=== PATIENT | female | born 1975 ===

== ENCOUNTER 2016-07-21 09:24 | Emergency (ER) | payer BC ==
[2016-07-21 09:45] VITALS: BP 123/83
--- NOTE | 2016-07-21 10:20 | UC ---
Throat Pain/Nasal Zia HPI - HPI Summary HPI Summary: Sore, red throat starting 2 days ago. Denies cough or trouble breathing, no fever or vomiting. Works at [employer] school. - History of Current Complaint Hx Obtained From: Patient Hx Last Menstrual Period: 10/11/14 ?: No Onset/Duration: Gradual Onset, Lasting Days Severity: Moderate Cough: None Associated Signs & Symptoms: Negative: Sinus Discomfort, Nasal Discharge <Radha Toledo - Last Filed: 07/21/16 10:20> <Joanie Valadez - Last Filed: 07/21/16 11:20> - History of Current Complaint Chief Complaint: UCGeneralIllness Stated Complaint: SORE THROAT Time Seen by Provider: 07/21/16 10:07 - Allergies/Home Medications Allergies/Adverse Reactions: Allergies Allergy/AdvReac Type Severity Reaction Status Date / Time No Known Allergies Allergy Verified 11/12/15 15:47 PMH/Surg Hx/FS Hx/Imm Hx Previously Healthy: Yes - Surgical History Surgical History: None Surgery Procedure, Year, and Place: 2015 - Family History Known Family History: Negative: Blood Disorder - Social History Occupation: Employed Full-time Lives: With Family Alcohol Use: None Substance Use Type: None Smoking Status (MU): Never Smoked Tobacco Have You Smoked in the Last Year: No - Immunization History Most Recent Influenza Vaccination: unsure Most Recent Tetanus Shot: declines Most Recent Pneumonia Vaccination: never <Radha Toledo - Last Filed: 07/21/16 10:20> Review of Systems Constitutional: Negative Skin: Negative Eyes: Negative ENT: Sore Throat Respiratory: Negative Cardiovascular: Negative Gastrointestinal: Negative Genitourinary: Negative Motor: Negative Neurovascular: Negative Musculoskeletal: Negative Neurological: Negative Psychological: Negative All Other Systems Reviewed And Are Negative: Yes <Radha Toledo - Last Filed: 07/21/16 10:20> Physical Exam Triage Information Reviewed: Yes Appearance: Well-Appearing, No Pain Distress, Well-Nourished Vital Signs: Initial Vital Signs Temp 99.1 F 07/21/16 09:41 Pulse 87 07/21/16 09:41 Resp 16 07/21/16 09:41 BP 123/83 07/21/16 09:41 Pulse Ox 100 07/21/16 09:41 Vital Signs Reviewed: Yes Eye Exam: Normal Eyes: Positive: Conjunctiva Clear ENT: Positive: Hearing grossly normal, Pharyngeal erythema, TMs normal, Tonsillar swelling, Tonsillar exudate. Negative: Nasal congestion, Nasal drainage Dental Exam: Normal Neck: Positive: Supple, Nontender, Enlarged Nodes @ - tonsillar Respiratory Exam: Normal Respiratory: Positive: Chest non-tender, Lungs clear, Normal breath sounds, No respiratory distress, No accessory muscle use Cardiovascular Exam: Normal Cardiovascular: Positive: RRR, No Murmur Musculoskeletal Exam: Normal Neurological Exam: Normal Neurological: Positive: Alert Psychological Exam: Normal Skin Exam: Normal <Radha Toledo - Last Filed: 07/21/16 10:20> Vital Signs: Initial Vital Signs Temp 99.1 F 07/21/16 09:41 Pulse 87 07/21/16 09:41 Resp 16 07/21/16 09:41 BP 123/83 07/21/16 09:41 Pulse Ox 100 07/21/16 09:41 <Joanie Valadez - Last Filed: 07/21/16 11:20> Throat Pain/Nasal Course/Dx - Differential Dx/Diagnosis Provider Diagnoses: strep tonsillitis <Radha Toledo - Last Filed: 07/21/16 10:20> Discharge <Radha Toledo - Last Filed: 07/21/16 10:20> <Joanie Valadez - Last Filed: 07/21/16 11:20> - Discharge Plan Condition: Stable Disposition: HOME Prescriptions: Amoxicillin (*) [Amoxicillin 875 MG (*)] 875 mg PO BID #20 tab Patient Education Materials: Strep Throat (ED) Forms: *Work Release Referrals: Jayleen Lo MD [Primary Care Provider] - Attestation Statement User Type: Provider - I was available for consult. This patient was seen by the [facility]. The patient was not presented to, seen by, or examined by me. <Joanie Valadez - Last Filed: 07/21/16 11:20>
== END 2016-07-21 10:28 | disposition home or self-care (01) ==
LOC: UCEAST 09:24
DX: J03.00 Acute streptococcal tonsillitis, unspecified (principal)
CPT/HCPCS: 87651; 99212; G0463

== ENCOUNTER 2017-04-14 17:21 | Emergency (ER) | payer BC ==
[2017-04-14 17:34] VITALS: BP 119/66
--- NOTE | 2017-04-14 18:17 | UC ---
Abdominal Pain Female HPI - HPI Summary HPI Summary: 41 yo female has had episodic mild and brief episodes of epigastric abd pain since last PM has been anorexic no n/v/d cold water markedly worsened her symptoms - History of Current Complaint Chief Complaint: UCAbdominalPain Stated Complaint: UPPER ABD PAIN Time Seen by Provider: 04/14/17 18:09 Hx Obtained From: Patient Hx Last Menstrual Period: now Onset/Duration: Sudden Onset, Lasting Minutes - last <5 seonds Timing: Intermittent Episodes Lasting: - <5 seconds Severity Initially: Mild Severity Currently: None Pain Intensity: 0 Pain Scale Used: 0-10 Numeric Location: Epigastric Radiates: No Character: Aching, Colicy Aggravating Factor(s): Other: - cold water Alleviating Factor(s): Spontaneous Resolution Associated Signs and Symptoms: Positive: Decreased Appetite. Negative: Diaphoresis, Fever, Cough, Chest Pain, Dizzy, Back Pain, Constipation, Blood in Stool, Urinary Symptoms, Vaginal Bleeding, Vaginal Discharge, Nausea, Vomiting, Diarrhea Allergies/Adverse Reactions: Allergies Allergy/AdvReac Type Severity Reaction Status Date / Time No Known Allergies Allergy Verified 04/14/17 17:34 PMH/Surg Hx/FS Hx/Imm Hx Previously Healthy: Yes - Surgical History Surgical History: None Surgery Procedure, Year, and Place: 2015 - Family History Known Family History: Positive: Hypertension Negative: Blood Disorder - Social History Alcohol Use: None Substance Use Type: None Smoking Status (MU): Never Smoked Tobacco Have You Smoked in the Last Year: No - Immunization History Most Recent Influenza Vaccination: unsure Most Recent Tetanus Shot: declines Most Recent Pneumonia Vaccination: never Review of Systems Constitutional: Negative Skin: Negative Eyes: Negative ENT: Negative Respiratory: Negative Cardiovascular: Negative Gastrointestinal: Abdominal Pain Genitourinary: Negative Motor: Negative Neurovascular: Negative Musculoskeletal: Negative Neurological: Negative Psychological: Negative Is Patient Immunocompromised?: No All Other Systems Reviewed And Are Negative: Yes Physical Exam Triage Information Reviewed: Yes Appearance: Well-Appearing, No Pain Distress, Well-Nourished Vital Signs: Initial Vital Signs Temp 99.6 F 04/14/17 17:30 Pulse 100 04/14/17 17:30 Resp 21 04/14/17 17:30 BP 119/66 04/14/17 17:30 Pulse Ox 100 04/14/17 17:30 Vital Signs Reviewed: Yes Eyes: Positive: Conjunctiva Clear ENT: Positive: Hearing grossly normal. Negative: Nasal congestion, Nasal drainage, Tonsillar swelling, Tonsillar exudate, Muffled voice, Hoarse voice Neck: Positive: Supple, Nontender Respiratory: Positive: Lungs clear, Normal breath sounds, No respiratory distress Cardiovascular: Positive: RRR, No Murmur Abdomen Description: Positive: Nontender, No Organomegaly, Soft. Negative: CVA Tenderness (R), CVA Tenderness (L), McBurney's Point Tenderness, Peritoneal Signs, Pulsatile Mass, Splenomegaly Musculoskeletal: Positive: ROM Intact, No Edema Neurological: Positive: Alert Psychological Exam: Normal Skin Exam: Normal Abd Pain Female Course/Dx - Differential Dx/Diagnosis Provider Diagnoses: intermittent epigastric abdominal pain of uncertain cause. ?gastritis Discharge - Discharge Plan Condition: Stable Disposition: HOME Patient Education Materials: Gastritis (ED), Abdominal Pain (ED) Referrals: Jayleen Lo MD [Primary Care Provider] - As Soon As Possible Additional Instructions: Possible gastritis she Dr Lo for persistent symptoms to ER for new or worsening symptoms [place] 30 cc (2 tablespoons) every 2 hours while awake for 2-3 days avoid caffiene/alcohol/aspirin/advil/aleve
== END 2017-04-14 18:28 | disposition home or self-care (01) ==
LOC: UCEAST 17:21
DX: R10.13 Epigastric pain (principal)
CPT/HCPCS: 99211; G0463